=== PATIENT | male | born 1970 | race Caucasian/White ===

== ENCOUNTER 2017-12-05 07:55 | Observation (INO) | payer BC ==
[2017-12-05] MEDS ORDERED: HUMALOG SQ (08:04)
[2017-12-05] MEDS ORDERED: PANT20 PO (08:04)
[2017-12-05] MEDS ORDERED: LANTUS2P SQ (08:04)
[2017-12-05] MEDS ORDERED: CREON24 PO (09:26)
[2017-12-05] MEDS ORDERED: ZOLO25TA PO (09:26)
[2017-12-05] MEDS ORDERED: SODIUM CHLORIDE 0.9% FLUSH 10 ML FLUSH IV FLUSH PRN (12:30)
[2017-12-05] MEDS ORDERED: ONDANSETRON HCL 4 MG/2 ML VIAL IV PUSH PRN (12:30)
[2017-12-05] MEDS ORDERED: NITROGLYCERIN 0.4 MG SL 25 TABS/BTL SL PRN (12:30)
[2017-12-05] MEDS ORDERED: ACETAMINOPHEN 500 MG CPLT PO PRN (12:30)
--- NOTE | 2017-12-05 13:06 | HHI.HP ---
HPI Primary Care Physician Sanket Kenny MD Chief Complaint Chest pain History of Present Illness 47-year-old male with history of diabetes(after removal of pancreas 2015) and current smoker presents the emergency room for further evaluation of chest pain. Onset 7 AM upon awakening. Characterized as stabbing. Location left shoulder radiating to left anterior chest. Severity 7/10. No associated symptoms of nausea, vomiting, diaphoresis, or shortness of breath. Duration constant. Endorses hurts to take a deep breath. Denies similar pain in the past. No known precipitating factors. No recent illness, injury, or known trauma. Relieving factors morphine given in [facility], stating pain subsided "some." Review of Systems General: No fatigue,weakness, fever, chills, recent illness, or change in appetite. Has been intentional stated health. HEENT: No CAM[place]ON CV: Continues to have chest pain as stated above. No pressure, palpitations, or dizziness RESP: No SOB, cough, wheeze, or recent URI. GI: No nausea, vomiting, bowel changes. No unintentional weight gain or weight loss. : No dysuria, urgency, frequency EXT: No lower leg edema, no paraesthesias MS: Left shoulder sharp, stabbing pain radiating to left anterior chest. No known injury, recent trauma, or change in ROM. NEURO: No difficulty with balance, LOC, motor/sensory deficits PSYCH: History of depression, taking Zoloft. No anxiety. SKIN: No rashes, no concerning lesions Past Family Social History Allergies: Coded Allergies: prochlorperazine (Verified Allergy, Severe, 12/05/17) Uncoded Allergies: steroids (Allergy, Severe, 12/05/17) Past Medical History Chronic pancreatitis, insulin dependent diabetes s/p pancreatectomy, GERD, current smoker, depression Past Surgical History Pancreatectomy (December 2015) Reported Medications Reported Meds & Active Scripts Active Reported Creon (Amylase/Lipase/Protease) 24,000-76,000-120,000 Units Cap 1 Cap PO TIDPC Zoloft (Sertraline HCl) 25 Mg Tab 25 Mg PO DAILY Lantus Inj (Insulin Glargine) 1,000 Unit/10 Ml Vial 22 Units SQ QAM Humalog Inj (Insulin Human Lispro) 1,000 Unit/10 Ml Vial 1-9 Units SQ ACHS Max dose at bedtime:( )units; sugars< 70,(0)units; sugars 150-199,(1)unit; sugars 200-249,(3)units; sugars 250-299,(5)units; sugars 300-349,(7)units; sugars more than 349,(9)units. Protonix (Pantoprazole Sodium) 20 Mg Tab 20 Mg PO DAILY Active Ordered Medications Current Medications Medications (Trade) Dose Ordered Sig/Timo Route Start Time Stop Time Status Last Admin (NS Flush) 2 ml UNSCH PRN IV FLUSH 12/05/17 12:30 (NS Flush) 2 ml BID IV FLUSH 12/05/17 21:00 (Tylenol) 500 mg Q4H PRN PO 12/05/17 12:30 (Zofran Inj) 4 mg Q6H PRN IV PUSH 12/05/17 12:30 (Nitrostat Sl) 0.4 mg Q5M PRN SL 12/05/17 12:30 (Aspirin) 325 mg DAILY PO 12/06/17 09:00 Family History Noncontributory for early cardiovascular disease. Social History Diabetes. No known coronary artery disease, hypertension, or hyperlipidemia. Current smoker one pack/daily. 40 pack year history. Rare alcohol use. Denies any illegal drug use. . Endorses and after lifestyle. Past cardiac testing None Physical Exam Physical Exam GENERAL: Alert WN, WD, NAD, male HEAD: NC, AT EYES: Sclera clear, conjunctiva without injection, pupils equal and round ENT: Mucous membranes pink and moist CV: RRR, without murmur, rub, gallop, no JVD, S1-S2 no S3-S4. RESP: Clear lungs throughout bilateral, no crackles, wheeze, rhonchi, symmetrical chest rise, nonlabored, able to speak in full sentences ABD: Soft, NT, ND, no masses, positive bowel tones BACK: No scoliosis EXT: Pulses +24, no dependent edema MS: Normal tone 4 extremities, no obvious deformities, full range of motion NEURO: CN II through CN XII grossly intact, motor strength 5/5 PSYCH: A+O 3, flat affect, appears angry, appropriate speech. SKIN: Normal turgor, normal texture, no lesions, no rashes, brisk cap refill, even hair distribution, multiple tattoos Laboratory Initial lab work completed [facility]. CBC unremarkable. BMP unremarkable. D- dimer 0.19, lipase 34, troponin x2 0.02 Imaging Chest x-ray completed in [facility] and read by radiologist as small vague opacity at the left cardiophrenic angle of undetermined chronicity. Course EKG NSR, normal sinus rhythm, no ST segment changes Caprini VTE Risk Assessment Caprini VTE Risk Assessment: No/Low Risk (score <= 1) Caprini Risk Assessment Model Point Value = 1 Point Value = 2 Point Value = 3 Point Value = 5 Age 41-60 Minor surgery BMI > 25 kg/m2 Swollen legs Varicose veins or History of unexplained or recurrent spontaneous Oral contraceptives or hormone replacement Sepsis (< 1 month) Serious lung disease, including pneumonia (< 1 month) Abnormal pulmonary function Acute myocardial infarction Congestive heart failure (< 1 month) History of inflammatory bowel disease Medical patient at bed rest Age 61-74 Arthroscopic surgery Major open surgery (> 45 min) Laparoscopic surgery (> 45 min) Malignancy Confined to bed (> 72 hours) Immobilizing plaster cast Central venous access Age >= 75 History of VTE Family history of VTE Factor V Leiden Prothrombin [id number] Lupus anticoagulant Anticardiolipin antibodies Elevated serum homocysteine Heparin-induced thrombocytopenia Other congenital or acquired thrombophilia Stroke (< 1 month) Elective arthroplasty Hip, pelvis, or leg fracture Acute spinal cord injury (< 1 month) Prophylaxis Regimen Total Risk Factor Score Risk Level Prophylaxis Regimen 0-1 Low Early ambulation 2 Moderate Order ONE of the following: *Sequential Compression Device (SCD) *Heparin 5000 units SQ BID 3-4 Higher Order ONE of the following medications: *Heparin 5000 units SQ TID *Enoxaparin/Lovenox 40 mg SQ daily (WT < 150 kg, CrCl > 30 mL/min) *Enoxaparin/Lovenox 30 mg SQ daily (WT < 150 kg, CrCl > 10-29 mL/min) *Enoxaparin/Lovenox 30 mg SQ BID (WT < 150 kg, CrCl > 30 mL/min) AND/OR *Sequential Compression Device (SCD) 5 or more Highest Order ONE of the following medications: *Heparin 5000 units SQ TID (Preferred with Epidurals) *Enoxaparin/Lovenox 40 mg SQ daily (WT < 150 kg, CrCl > 30 mL/min) *Enoxaparin/Lovenox 30 mg SQ daily (WT < 150 kg, CrCl > 10-29 mL/min) *Enoxaparin/Lovenox 30 mg SQ BID (WT < 150 kg, CrCl > 30 mL/min) AND *Sequential Compression Device (SCD) Assessment and Plan Assessment and Plan #1 Atypical chest pain-admitted to chest pain center. Rule out with 3 sets of EKGs, cardiac enzymes, and monitor on telemetry. Will be seen and evaluated by Dr. Avis Dao. Discussed possible cardiac exercise stress testing later this afternoon after being ruled out and seen by cylinder tester. Reassurance discomfort appears to be musculoskeletal and dose of Toradol 30 mg IV x1 dose will be provided. Patient agreeable to plan of care. #2 History of insulin dependent diabetes-resume home insulins after NPO status lifted, later this afternoon. Discussed importance of lisinopril for renal protection. #3 History of depression-continue Zoloft #4 History of GERD-continue Protonix Ana Lilia Hoang Dec 05, 2017 13:06
[2017-12-05 13:20] VITALS: BP 116/73; PULSE 52; RESP 18; TEMP 97.8; O2SAT 96
[2017-12-05] MEDS ORDERED: LIPASE/PROTEASE/AMYLASE (24,000/76,000/120,000) CAP PO SCH (13:30)
[2017-12-05] MEDS ORDERED: KETOROLAC TROMETHAMINE 30 MG/ML (IVP) VIAL IV PUSH ONE (13:30)
[2017-12-05] MEDS ORDERED: SERTRALINE HCL 50 MG TAB PO SCH (13:30)
[2017-12-05] MEDS ORDERED: PILL SPLITTER OTHER PRN (13:45)
[2017-12-05 15:28] VITALS: BP 122/85; PULSE 83; RESP 20; TEMP 97.9; O2SAT 98
[2017-12-05 15:45] VITALS: PULSE 63
[2017-12-05] MEDS ORDERED: DEXTROSE 50% IN WATER 50 ML VIAL(D50) IV PUSH PRN (18:30)
[2017-12-05] MEDS ORDERED: GLUCAGON 1 MG/ML VIAL OTHER PRN (18:30)
[2017-12-05 19:05] VITALS: O2SAT 99
--- NOTE | 2017-12-05 19:05 | HHI.DCPOC ---
Discharge Care Plan Diagnosis: (1) Musculoskeletal chest pain (2) Tobacco abuse Goals to Promote Your Health * To prevent worsening of your condition and complications * To maintain your health at the optimal level Directions to Meet Your Goals Take your medications as prescribed Follow your dietary instruction Follow activity as directed Keep your appointments as scheduled Take your immunizations and boosters as scheduled If your symptoms worsen call your PCP, if no PCP go to Urgent Care Center or Emergency Room Smoking is Dangerous to Your Health. Avoid second hand smoke Call the 24-hour hour crisis hotline for domestic abuse at Ana Lilia Hoang Dec 05, 2017 19:05
[2017-12-05] MEDS ORDERED: INSULIN ASPART SUPPLEMENTAL SCALE SQ SCH (21:00)
[2017-12-05] MEDS ORDERED: SODIUM CHLORIDE 0.9% FLUSH 10 ML FLUSH IV FLUSH SCH (21:00)
[2017-12-06] MEDS ORDERED: ASPIRIN 325 MG TAB PO SCH (09:00)
[2017-12-06] MEDS ORDERED: PANTOPRAZOLE SOD 20 MG DELAYED RELEASE TAB PO SCH (09:00)
--- NOTE | 2017-12-06 15:19 | EKG ---
Date Performed: 12/05/2017 Time Performed: 14:10:22 PTAGE: 47 years EKG: SINUS BRADYCARDIA EARLY REPOLARIZATION BORDERLINE ECG NO PREVIOUS TRACING DOCTOR: Larry Kate Interpretating Date/Time 12/06/2017 15:17:13
--- NOTE | 2017-12-06 15:20 | TR ---
Date Performed: 12/05/2017 Time Performed: 18:42:49 DOCTOR: Larry Kate DRUG LIST: CLINICAL HISTORY: REASON FOR TEST: Chest pain REASON FOR ENDING: OBSERVATION: CONCLUSION: Alejo protocol completed. Stopped sec to reaching target heart rate and leg fatigue. Maximum CJ=793 Target HR Achieved=93.0% Maximum HU=236/110. No reprod chest discomfort. No ectopy. U psloping st segments, not suggesting ischemia however are nondiagnostic. Normal bp response. Great ex ercise tolerance. Recovery quick and unremarkable. COMMENTS: Patient exercised using the Alejo protocol. No electrocardiographic changes were seen to suggest ischemia. Hemodynamic response to exercise was normal. No significant arrhythmia was prese nt.
== END 2017-12-05 19:45 | disposition home or self-care (01) ==
LOC: NEDDLT 07:55 → NEPFCDU 12:00 → UNDODISOB 19:45
PROVIDERS: ADMIT Internal Medicine Interventional Cardiology; ATTEND Internal Medicine Interventional Cardiology
DX: R07.89 Other chest pain (principal); R00.1 Bradycardia, unspecified; E11.9 Type 2 diabetes mellitus without complications; K21.9 Gastro-esophageal reflux disease without esophagitis; F32.9 Major depressive disorder, single episode, unspecified; R06.02 Shortness of breath; F17.200 Nicotine dependence, unspecified, uncomplicated; Z79.4 Long term (current) use of insulin; Z79.899 Other long term (current) drug therapy
CPT/HCPCS: 71046; 80048; 82550; 82552; 83690; 83735; 83880; 84484; 85025; 85379; 85610; 85730; 93005; 93017; 96374; 96376; 99285; G0378; J1885; J2270